=== PATIENT | male | born 1960 | race Caucasian/White ===

== ENCOUNTER 2018-03-22 12:28 | Emergency (ER) | END 2018-03-22 19:26 | disposition home or self-care (01) ==

== ENCOUNTER 2018-06-09 10:55 | Emergency (ER) | payer MEDICARE, OTHER ==
[~2018-06-09] VITALS: Ht 175.3 cm; Wt 121.2 kg
[~2018-06-09 10:55] MED LIST: AMLO-147 PO; ASPI325T32 PO; ATEN50TA PO; ATOR40TA68 PO; BENA20TA4 PO; CLOP75TA27 PO; DICY10CA40 PO; GABA100C14 PO; GLIM4TAB PO; INSU100I13 SC; METF500T24 PO; ONDA4TAB14 PO
[2018-06-09 11:03] VITALS: Ht 175.3 cm; Wt 121.2 kg
--- NOTE | 2018-06-09 13:06 | ERD ---
ER Documentation Chief Complaint Chief Complaint body swelling, sob, sent by pmd for further evaluation HPI 58-year-old male with a history of hypertension, diabetes, and remote history of CAD with PCI presenting to the ER complaining of worsening bilateral lower extremity and upper extremity edema over the past 4 days. He did not have any SOB until last night. He was having difficulty sleeping due to SOB. Denies associated chest pain, fever, chills, change in urination. Normal BMs without melena or hematochezia. 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 He has an appointment scheduled with his PCP next week. He went to his PCP yesterday and was told to come to the ER for evaluation. Denies history of heart failure. ROS All systems reviewed and are negative except as per history of present illness. Medications Home Meds Active Scripts Furosemide* (Lasix*) 20 Mg Tablet, 20 MG PO DAILY, #20 TAB Prov:ROJELIO LONDON MD 06/09/18 Reported Medications Sitagliptin Phos-Metformin Hcl (Janumet XR) 100-1,000 Mg Tbmp.24hr, 1 TAB PO WITH DINNER, #30 TAB 06/09/18 Ramipril (Ramipril) 5 Mg Capsule, 5 MG PO DAILY, CAP 06/09/18 Metoprolol Succinate* (Toprol XL*) 100 Mg Tab.sr.24h, 100 MG PO DAILY, #30 TAB 06/09/18 Insulin Aspart* (Novolog Insulin Pen*) 100 Unit/Ml Soln, 30 UNIT SC QPM, EA 06/09/18 Gabapentin* (Gabapentin*) 300 Mg Capsule, 300 MG PO DAILY, #60 CAP 06/09/18 Exenatide Microspheres (Bydureon) 2 Mg Vial, 2 MG SQ Q7D, VIAL 06/09/18 Ergocalciferol (Vitamin D2) (VITAMIN D2) 50,000 Unit Capsule, 19785 UNIT PO TWO TIMES WEEKLY, CAP 06/09/18 Docusate Sodium* (Colace*) 100 Mg Capsule, 200 MG PO DAILY PRN for CONSTIPATION, #30 CAP 06/09/18 Aspirin* (Aspirin* (EC)) 81 Mg Tablet.dr, 81 MG PO DAILY, TAB 06/09/18 Insuln Asp Prt/Insulin Aspart* (Novolog Mix 70-30 Flexpen*) 100 Units/Ml Pen, 35 UNIT SC AM, EA 03/01/14 Amlodipine Besylate* (Amlodipine Besylate*) 10 Mg Tablet, 10 MG PO DAILY, TAB 03/01/14 Atorvastatin* (Atorvastatin*) 40 Mg Tablet, 40 MG PO DAILY, TAB 03/01/14 Discontinued Reported Medications Aspirin (Aspirin) 325 Mg Tablet.dr, 325 MG PO DAILY 03/01/14 Atenolol* (Atenolol*) 50 Mg Tablet, 50 MG PO DAILY, TAB 03/01/14 Glimepiride* (Glimepiride*) 4 Mg Tablet, 4 MG PO DAILY, TAB 03/01/14 Metformin Hcl* (Metformin Hcl*) 500 Mg Tablet, 500 MG PO BID, TAB 03/01/14 Clopidogrel Bisulfate (Clopidogrel) 75 Mg Tablet, 75 MG PO DAILY, TAB 03/01/14 Benazepril Hcl* (Benazepril Hcl*) 20 Mg Tablet, 20 MG PO DAILY, TAB 03/01/14 Gabapentin* (Gabapentin*) 100 Mg Capsule, 100 MG PO DAILY, CAP 03/01/14 Discontinued Scripts Dicyclomine HCl (Dicyclomine HCl) 10 Mg Capsule, 10 MG PO TID PRN for ABDOMINAL CRAMPING, #20 CAP Prov:LÓPEZ OSCAR MD 03/22/18 Ondansetron (Ondansetron Odt) 4 Mg Tab.rapdis, 4 MG PO Q6H PRN for NAUSEA AND/OR VOMITING, #10 TAB Prov:LÓPEZ OSCAR MD 03/22/18 Allergies Allergies: Coded Allergies: No Known Allergy (Verified , 03/01/14) PMhx/Soc History of Surgery: Yes (cholecystectomy, coronary stent placed in 2006) Anesthesia Reaction: No Hx Neurological Disorder: No Hx Respiratory Disorders: No Hx Cardiac Disorders: Yes (mi x 10 years ago, stent x1 @[facility], HTN) Hx Psychiatric Problems: No Hx Miscellaneous Medical Probl: Yes (DM) Hx Alcohol Use: No Hx Substance Use: No Hx Tobacco Use: Yes FmHx Family History: diabetes Physical Exam Vitals Vital Signs Date Temp Pulse Resp B/P (MAP) Pulse Ox O2 O2 Flow FiO2 Time Delivery Rate 06/09/18 97.8 103 18 178/98 98 11:03 (124) Physical Exam Const: No acute distress Head: Atraumatic Eyes: Normal Conjunctiva ENT: Normal External Ears, Nose and Mouth. Hoarse voice Neck: Full range of motion. No meningismus. Resp: Clear to auscultation bilaterally Cardio: Regular rate and rhythm, no murmurs. 2+ distal pulss Abd: Soft, non tender, distended. Normal bowel sounds Skin: No petechiae or rashes Back: No midline or flank tenderness Ext: No cyanosis, 1+ b/l hand and lower extremity pitting edema Neur: Awake and alert, oriented, no facial asymmetry. Strength intact in all 4 extremities Psych: Normal Mood and Affect Result Diagram: 06/09/18 1300 06/09/18 1300 Results 24 hrs Laboratory Tests Test 06/09/18 13:00 White Blood Count 12.4 10^3/ul Red Blood Count 4.67 10^6/ul Hemoglobin 12.5 g/dl Hematocrit 38.7 % Mean Corpuscular Volume 82.9 fl Mean Corpuscular Hemoglobin 26.8 pg Mean Corpuscular Hemoglobin Concent 32.3 g/dl Red Cell Distribution Width 13.3 % Platelet Count 301 10^3/UL Mean Platelet Volume 10.9 fl Immature Granulocytes % 0.500 % Neutrophils % 65.2 % Lymphocytes % 23.1 % Monocytes % 8.7 % Eosinophils % 1.9 % Basophils % 0.6 % Nucleated Red Blood Cells % 0.0 /100WBC Immature Granulocytes # 0.060 10^3/ul Neutrophils # 8.1 10^3/ul Lymphocytes # 2.9 10^3/ul Monocytes # 1.1 10^3/ul Eosinophils # 0.2 10^3/ul Basophils # 0.1 10^3/ul Nucleated Red Blood Cells # 0.0 10^3/ul Sodium Level 138 mmol/L Potassium Level 4.2 mmol/L Chloride Level 111 mmol/L Carbon Dioxide Level 22 mmol/L Anion Gap 5 Blood Urea Nitrogen 29 mg/dl Creatinine 1.50 mg/dl Est Glomerular Filtrat Rate mL/min 48 mL/min Glucose Level 116 mg/dl Calcium Level 8.8 mg/dl Total Bilirubin 0.2 mg/dl Direct Bilirubin 0.00 mg/dl Indirect Bilirubin 0.2 mg/dl Aspartate Amino Transf (AST/SGOT) 19 IU/L Alanine Aminotransferase (ALT/SGPT) 10 IU/L Alkaline Phosphatase 85 IU/L Troponin I < 0.012 ng/ml B-Type Natriuretic Peptide 910 PG/ML Total Protein 6.6 g/dl Albumin 3.0 g/dl Globulin 3.60 g/dl Albumin/Globulin Ratio 0.83 Current Medications Medications Dose Sig/Racquel Start Time Status Last (Trade) Ordered Route PRN Stop Time Admin Dose Reason Admin Furosemide 20 mg ONCE ONCE 06/09/18 DC (Lasix) IV 14:30 06/09/18 14:31 Procedures/MDM EMERGENT LABS AND DIAGNOSTIC STUDIES: Lab Results above were reviewed and interpreted by me. CBC: mild leukocytosis, unclear etiology. no clinically significant anemia CMP: No evidence of electrolyte abnormality, renal failure, hypoglycemia, liver failure, or biliary obstruction Troponin within normal limits, not indicative of cardiac ischemia BNP: slightly elevated 12-lead EKG was interpreted by Keny London MD: Normal Sinus Rhythm with ventricular rate of 92 beats per minute Normal axis Normal intervals No acute ST or T wave changes suggestive of acute ischemia or STEMI. Radiology Results as interpreted by Radiology below were reviewed by Yudy London MD: Chest Xray: no acute abnormalities Initial Nursing notes reviewed. Previous Medical Records requested via the Electronic Health Record. EMERGENCY DEPARTMENT COURSE / MEDICAL DECISION MAKING: Patient is presenting with worsening shortness of breath and constellation of symptoms concerning for fluid overload and possible acute CHF. No hypoxia or respiratory distress. EKG shows no overt evidence of acute ischemia. Labs do not show significant abnormalities other than mild hypoalbuminemia and mild elevation of BUN and Cr, but kidney function is at his baseline. There is no ev idence of impending cardiovascular collapse. Chest Xray shows no signs of overt CHF. Low suspicion for acute PE given exam and history. Lasix administered via IV. Patient is stable for discharge with outpatient treatment of his fluid overload and continued close follow up with PCP. He already has appointment scheduled for next week. Return precautions were discussed in detail. Rx for Lasix given. Patient's blood pressure was elevated (>120/80) but appears stable without evidence of hypertensive emergency or urgency. The patient was counseled about the risks of hypertension and urged to pursue outpatient monitoring and therapy within a week with their primary care physician. Departure Diagnosis: Primary Impression: Edema, peripheral Additional Impression: Hypoalbuminemia Condition: Stable ROJELIO LONDON MD Jun 09, 2018 13:06
[2018-06-09] MEDS ORDERED: DOCU-144 PO (13:40)
[2018-06-09] MEDS ORDERED: ASPI-1046 PO (13:40)
[2018-06-09] MEDS ORDERED: ERGO500013 PO (13:41)
[2018-06-09] MEDS ORDERED: EXEN2VIA SQ (13:41)
[2018-06-09] MEDS ORDERED: NOVO3I SC (13:42)
[2018-06-09] MEDS ORDERED: GABA300C16 PO (13:42)
[2018-06-09] MEDS ORDERED: METO-336 PO (13:43)
[2018-06-09] MEDS ORDERED: RAMI5CAP64 PO (13:43)
[2018-06-09] MEDS ORDERED: SITA1TBM7 PO (13:44)
[2018-06-09] MEDS ORDERED: FURO-110 PO (14:10)
[2018-06-09] MEDS ORDERED: FUROSEMIDE 20 MG INJ IV ONE (14:30)
[2018-06-09 15:15] VITALS: BP 163/95; PULSE 97; RESP 18
== END 2018-06-09 15:15 | disposition home or self-care (01) ==
LOC: E/R 10:55
DX: R60.0 Localized edema (principal); E88.09 Other disorders of plasma-protein metabolism, not elsewhere classified; I10 Essential (primary) hypertension; E11.9 Type 2 diabetes mellitus without complications; I25.2 Old myocardial infarction; I25.10 Atherosclerotic heart disease of native coronary artery without angina pectoris; Z79.4 Long term (current) use of insulin; Z87.891 Personal history of nicotine dependence; Z98.61 Coronary angioplasty status; Z79.82 Long term (current) use of aspirin
CPT/HCPCS: 36415; 71045; 80053; 81001; 83880; 84484; 85025; 93005; 96374; 99285; J1940; 81003

== ENCOUNTER 2018-11-18 17:43 | Emergency (ER) | payer MEDICARE, OTHER ==
[~2018-11-18] VITALS: Ht 175.3 cm; Wt 114.0 kg
[~2018-11-18 17:43] MED LIST changes: +ASPI-1046 PO; -ASPI325T32 PO; -ATEN50TA PO; -BENA20TA4 PO; -CLOP75TA27 PO; -DICY10CA40 PO; +DOCU-144 PO; +ERGO500013 PO; +EXEN2VIA SQ; +FURO-110 PO; -GABA100C14 PO; +GABA300C16 PO; -GLIM4TAB PO; -METF500T24 PO; +METO-336 PO; +NOVO3I SC; -ONDA4TAB14 PO; +RAMI5CAP64 PO; +SITA1TBM7 PO
[2018-11-18 18:11] VITALS: Ht 175.3 cm; Wt 114.0 kg
--- NOTE | 2018-11-18 20:38 | ERD ---
ER Documentation Chief Complaint Chief Complaint EPIGASTRIC PAIN WITH INTRACTABLE VOMITING X 4 DAYS ROS All systems reviewed and are negative except as per history of present illness. Medications Home Meds Active Scripts Furosemide* (Lasix*) 20 Mg Tablet, 20 MG PO DAILY, #20 TAB Prov:ROJELIO LONDON MD 06/09/18 Reported Medications Sitagliptin Phos-Metformin Hcl (Janumet XR) 100-1,000 Mg Tbmp.24hr, 1 TAB PO WITH DINNER, #30 TAB 06/09/18 Ramipril (Ramipril) 5 Mg Capsule, 5 MG PO DAILY, CAP 06/09/18 Metoprolol Succinate* (Toprol XL*) 100 Mg Tab.sr.24h, 100 MG PO DAILY, #30 TAB 06/09/18 Insulin Aspart* (Novolog Insulin Pen*) 100 Unit/Ml Soln, 30 UNIT SC QPM, EA 06/09/18 Gabapentin* (Gabapentin*) 300 Mg Capsule, 300 MG PO DAILY, #60 CAP 06/09/18 Exenatide Microspheres (Bydureon) 2 Mg Vial, 2 MG SQ Q7D, VIAL 06/09/18 Ergocalciferol (Vitamin D2) (VITAMIN D2) 50,000 Unit Capsule, 29744 UNIT PO TWO TIMES WEEKLY, CAP 06/09/18 Docusate Sodium* (Colace*) 100 Mg Capsule, 200 MG PO DAILY PRN for CONSTIPATION, #30 CAP 06/09/18 Aspirin* (Aspirin* (EC)) 81 Mg Tablet.dr, 81 MG PO DAILY, TAB 06/09/18 Insuln Asp Prt/Insulin Aspart* (Novolog Mix 70-30 Flexpen*) 100 Units/Ml Pen, 35 UNIT SC AM, EA 03/01/14 Amlodipine Besylate* (Amlodipine Besylate*) 10 Mg Tablet, 10 MG PO DAILY, TAB 03/01/14 Atorvastatin* (Atorvastatin*) 40 Mg Tablet, 40 MG PO DAILY, TAB 03/01/14 Allergies Allergies: Coded Allergies: No Known Allergy (Verified , 03/01/14) PMhx/Soc Hypertension, diabetes, and CAD with PCI and stent placement to RCA, anxiety, gallstones, peripheral edema History of Surgery: Yes (cholecystectomy, coronary stent placed in 2006) Anesthesia Reaction: No Hx Neurological Disorder: No Hx Respiratory Disorders: No Hx Cardiac Disorders: Yes (mi x 10 years ago, stent x1 @[facility], HTN) Hx Psychiatric Problems: No Hx Miscellaneous Medical Probl: Yes (DM) Hx Alcohol Use: No Hx Substance Use: No Hx Tobacco Use: Yes Smoking Status: Never smoker Physical Exam Vitals Vital Signs Date Temp Pulse Resp B/P (MAP) Pulse Ox O2 O2 Flow FiO2 Time Delivery Rate 11/18/18 97.5 120 20 167/100 98 18:11 (122) Physical Exam Const: No acute distress Head: Atraumatic Eyes: Normal Conjunctiva ENT: Normal External Ears, Nose and Mouth. Neck: Full range of motion. No meningismus. Resp: Clear to auscultation bilaterally Cardio: Regular rate and rhythm, no murmurs Abd: Soft, non tender, non distended. Normal bowel sounds Skin: No petechiae or rashes Back: No midline or flank tenderness Ext: No cyanosis, or edema Neur: Awake and alert Psych: Normal Mood and Affect Results 24 hrs Current Medications Medications Dose Sig/Racquel Start Time Status Last (Trade) Ordered Route PRN Stop Time Admin Dose Reason Admin Sodium 1,000 ml @ Q1H STAT 11/18/18 Chloride 1,000 mls/hr IV 20:45 11/18/18 21:44 Morphine 4 mg ONCE STAT 11/18/18 DC Sulfate IV 20:45 (morphine) 11/18/18 20:46 Ondansetron 4 mg ONCE STAT 11/18/18 DC HCl (Zofran IV 20:45 Inj) 11/18/18 20:46 JUDY COBB MD Nov 18, 2018 20:38
[2018-11-18] MEDS ORDERED: SOD CHLORIDE 0.9% 1,000 ML IV STA (20:45)
[2018-11-18] MEDS ORDERED: ONDANSETRON 4 MG INJ IV STA (20:45)
[2018-11-18] MEDS ORDERED: morphine 4 MG/ML VIAL IV STA (20:45)
[2018-11-18] MEDS ORDERED: LIDOCAINE/MYLANTA 40 ML BTL PO ONE (22:00)
--- NOTE | 2018-11-18 23:05 | ERD ---
ER Documentation Chief Complaint Chief Complaint EPIGASTRIC PAIN WITH PERSISTENT VOMITING X 4 DAYS HPI This is a 58 epigastric pain with persistent vomiting for the past 4 days but this has been well for the past few months. He says he feels he has acid coming up in the stomach to the back of her throat. Denies fevers or chills. Denies nausea vomiting. Denies any other current complaints. ROS All systems reviewed and are negative except as per history of present illness. Medications Home Meds Active Scripts Furosemide* (Lasix*) 20 Mg Tablet, 20 MG PO DAILY, #20 TAB Prov:ROJELIO LONDON MD 06/09/18 Reported Medications Sitagliptin Phos-Metformin Hcl (Janumet XR) 100-1,000 Mg Tbmp.24hr, 1 TAB PO WITH DINNER, #30 TAB 06/09/18 Ramipril (Ramipril) 5 Mg Capsule, 5 MG PO DAILY, CAP 06/09/18 Metoprolol Succinate* (Toprol XL*) 100 Mg Tab.sr.24h, 100 MG PO DAILY, #30 TAB 06/09/18 Insulin Aspart* (Novolog Insulin Pen*) 100 Unit/Ml Soln, 30 UNIT SC QPM, EA 06/09/18 Gabapentin* (Gabapentin*) 300 Mg Capsule, 300 MG PO DAILY, #60 CAP 06/09/18 Exenatide Microspheres (Bydureon) 2 Mg Vial, 2 MG SQ Q7D, VIAL 06/09/18 Ergocalciferol (Vitamin D2) (VITAMIN D2) 50,000 Unit Capsule, 02936 UNIT PO TWO TIMES WEEKLY, CAP 06/09/18 Docusate Sodium* (Colace*) 100 Mg Capsule, 200 MG PO DAILY PRN for CONSTIPATION, #30 CAP 06/09/18 Aspirin* (Aspirin* (EC)) 81 Mg Tablet.dr, 81 MG PO DAILY, TAB 06/09/18 Insuln Asp Prt/Insulin Aspart* (Novolog Mix 70-30 Flexpen*) 100 Units/Ml Pen, 35 UNIT SC AM, EA 03/01/14 Amlodipine Besylate* (Amlodipine Besylate*) 10 Mg Tablet, 10 MG PO DAILY, TAB 03/01/14 Atorvastatin* (Atorvastatin*) 40 Mg Tablet, 40 MG PO DAILY, TAB 03/01/14 Allergies Allergies: Coded Allergies: No Known Allergy (Verified , 03/01/14) PMhx/Soc History of Surgery: Yes (cholecystectomy, coronary stent placed in 2006) Anesthesia Reaction: No Hx Neurological Disorder: No Hx Respiratory Disorders: No Hx Cardiac Disorders: Yes (mi x 10 years ago, stent x1 @[facility], HTN) Hx Psychiatric Problems: No Hx Miscellaneous Medical Probl: Yes (DM) Hx Alcohol Use: No Hx Substance Use: No Hx Tobacco Use: Yes Smoking Status: Never smoker Physical Exam Vitals Vital Signs Date Temp Pulse Resp B/P (MAP) Pulse Ox O2 O2 Flow FiO2 Time Delivery Rate 11/18/18 108 18 166/116 96 Room Air 20:51 (133) 11/18/18 97.5 120 20 167/100 98 18:11 (122) Physical Exam Const: No acute distress Head: Atraumatic Eyes: Normal Conjunctiva ENT: Normal External Ears, Nose and Mouth. Neck: Full range of motion. No meningismus. Resp: Clear to auscultation bilaterally Cardio: Regular rate and rhythm, no murmurs Abd: Soft, non tender, non distended. Normal bowel sounds Skin: No petechiae or rashes Back: No midline or flank tenderness Ext: No cyanosis, or edema Neur: Awake and alert Psych: Normal Mood and Affect Result Diagram: 11/18/18203611/18/182036 Results 24 hrs Laboratory Tests Test 11/18/18 20:37 White Blood Count 11.2 10^3/ul Red Blood Count 4.70 10^6/ul Hemoglobin 12.4 g/dl Hematocrit 39.5 % Mean Corpuscular Volume 84.0 fl Mean Corpuscular Hemoglobin 26.4 pg Mean Corpuscular Hemoglobin Concent 31.4 g/dl Red Cell Distribution Width 13.3 % Platelet Count 330 10^3/UL Mean Platelet Volume 11.7 fl Immature Granulocytes % 0.400 % Neutrophils % 66.7 % Lymphocytes % 23.8 % Monocytes % 7.1 % Eosinophils % 1.5 % Basophils % 0.5 % Nucleated Red Blood Cells % 0.0 /100WBC Immature Granulocytes # 0.040 10^3/ul Neutrophils # 7.5 10^3/ul Lymphocytes # 2.7 10^3/ul Monocytes # 0.8 10^3/ul Eosinophils # 0.2 10^3/ul Basophils # 0.1 10^3/ul Nucleated Red Blood Cells # 0.0 10^3/ul Urine Color YELLOW Urine Clarity SLIGHTLY CLOUDY Urine pH 5.0 Urine Specific [place] 1.027 Urine Ketones NEGATIVE mg/dL Urine Nitrite NEGATIVE mg/dL Urine Bilirubin NEGATIVE mg/dL Urine Urobilinogen NEGATIVE mg/dL Urine Leukocyte Esterase NEGATIVE Marta/ul Urine Microscopic RBC 9 /HPF Urine Microscopic WBC 4 /HPF Urine Bacteria FEW /HPF Urine Mucus FEW /HPF Urine Hemoglobin NEGATIVE mg/dL Urine Glucose 3+ mg/dL Urine Total Protein 3+ mg/dl Sodium Level 140 mmol/L Potassium Level 4.6 mmol/L Chloride Level 108 mmol/L Carbon Dioxide Level 24 mmol/L Anion Gap 8 Blood Urea Nitrogen 26 mg/dl Creatinine 2.46 mg/dl Est Glomerular Filtrat Rate mL/min 27 mL/min Glucose Level 217 mg/dl Calcium Level 8.8 mg/dl Total Bilirubin 0.8 mg/dl Direct Bilirubin 0.00 mg/dl Indirect Bilirubin 0.8 mg/dl Aspartate Amino Transf (AST/SGOT) 13 IU/L Alanine Aminotransferase (ALT/SGPT) 13 IU/L Alkaline Phosphatase 101 IU/L Troponin I 0.026 ng/ml Total Protein 6.7 g/dl Albumin 3.3 g/dl Globulin 3.40 g/dl Albumin/Globulin Ratio 0.97 Lipase 38 U/L Current Medications Medications Dose Sig/Racquel Start Time Status Last (Trade) Ordered Route PRN Stop Time Admin Dose Reason Admin Sodium 1,000 ml @ Q1H STAT 11/18/18 DC 11/18/18 Chloride 1,000 mls/hr IV 20:45 20:52 11/18/18 21:44 Morphine 4 mg ONCE STAT 11/18/18 DC 11/18/18 Sulfate IV 20:45 20:52 (morphine) 11/18/18 20:46 Ondansetron 4 mg ONCE STAT 11/18/18 DC 11/18/18 HCl (Zofran IV 20:45 20:52 Inj) 11/18/18 20:46 40 ml ONCE ONCE 11/18/18 DC 11/18/18 Miscellaneous PO 22:00 22:17 Medication 11/18/18 22:01 (Gi Cocktail (2)) Procedures/MDM EKG: Rate/Rhythm: [Normal Sinus Rhythm] QRS, ST, T-waves: [No changes consistent w/ acute ischemia] Impression: [No evidence of ischemia or arrhythmia] Chest X-ray 1V Interpreted by me: Soft Tissue: No acute abnormalities Bones: No acute abnormalities Mediastinum/Cardiac Silhouette/Lungs: [No acute abnormalities] Medical decision making: Patient's gastrointestinal symptoms have stabilized while in the department. No evidence of severe dehydration, sepsis, or surgical abdomen. Extensive discussion with family and patient that occult disease cannot be ruled out. 8 hour recheck for repeat abdominal exam is planned. Hemology completely abated after treating gastritis-like causes. He does seem to have a issue of acid overproduction and reflux. He is scheduled follow-up with GI. He will be discharged home with Zantac, Carafate, Zofran. Advised to follow-up in 8 hours for serial abdominal exams as well. Departure Diagnosis: Primary Impression: Epigastric pain Condition: Stable LANI RUBIN Nov 18, 2018 23:05
[2018-11-18] MEDS ORDERED: RANI150T35 PO (23:06)
[2018-11-18] MEDS ORDERED: SUCR1TAB56 PO (23:06)
[2018-11-18] MEDS ORDERED: ONDA4TAB14 PO (23:06)
[2018-11-18 23:25] VITALS: BP 162/112; PULSE 101; RESP 19
== END 2018-11-18 23:33 | disposition home or self-care (01) ==
LOC: E/R 17:43
DX: R10.13 Epigastric pain (principal); I10 Essential (primary) hypertension; E11.9 Type 2 diabetes mellitus without complications; Z79.4 Long term (current) use of insulin; Z87.891 Personal history of nicotine dependence; Z98.61 Coronary angioplasty status
CPT/HCPCS: 36415; 70490; 71045; 74176; 80053; 81001; 83690; 84484; 85025; 96374; 96375; 99285; J2270; J2405; J7030